=== PATIENT | female | born 1950 | race American Indian/Alaskan Native ===

== ENCOUNTER 2017-09-16 08:22 | Day surgery (SDC) | payer MEDICARE ==
[2017-09-16 09:00] VITALS: BMI 35.7
[2017-09-16 09:24] VITALS: TEMP 97.3; O2SAT 100
[2017-09-16] MEDS ORDERED: Propofol 10 mg/ml Inj (20 ML) ONE ×2 (10:05→10:24)
[2017-09-16] MEDS ORDERED: Midazolam 2 MG/2 ML VIAL ONE (10:05)
[2017-09-16] MEDS ORDERED: Lidocaine Hydrochloride 5 ML INJ ONE (10:06)
[2017-09-16 11:39] VITALS: BP 113/55; PULSE 46; RESP 17
== END 2017-09-16 11:38 | disposition home or self-care (01) ==
LOC: C.ENDO 08:22
PROVIDERS: ATTEND Internal Medicine Gastroenterology
DX: Z12.11 Encounter for screening for malignant neoplasm of colon (principal); K64.8 Other hemorrhoids
CPT/HCPCS: 45378; J2250; J2704